=== PATIENT | female | born 1995 | race Two or more races ===

== ENCOUNTER 2023-11-09 18:18 | Emergency (ER) | payer OTHER ==
[~2023-11-09] VITALS: Ht 160 cm; Wt 49.9 kg
[2023-11-09] MEDS ORDERED: OMEPRAZOLE MAGN20 MG PO (18:36)
[2023-11-09 20:14] LABS: HEMATOCRIT 34.9 % (36.0-45.00); HEMOGLOBIN 11.7 g/dL (12.0-15.00); MEAN CELL VOLUME 89.4 fL (80.00-100.00); MEAN CORPUSCULAR HEMOGLOBIN 30.1 pg (27.00-32.0); MEAN CORPUSCULAR HGB CONC 33.7 g/dl (32.0-36.0); RED CELL DISTRIBUTION WIDTH 13.5 % (11.5-14.5)
[2023-11-09 20:34] LABS: PLATELET COUNT 127 K/uL (150-450)
== END 2023-11-09 21:57 | disposition home or self-care (01) ==
LOC: ER 18:20
PROVIDERS: Emergency Medicine
DX: A90 Dengue fever [classical dengue] (principal); R50.9 Fever, unspecified